=== PATIENT | female | born 1940 | race Caucasian/White ===

== ENCOUNTER 2017-10-19 11:44 | Day surgery (SDC) | payer MEDICARE ==
[2017-10-16 14:13] LABS: BASOPHILS # (AUTO) 0.04 x10^3/uL (0-0.1); BASOPHILS % (AUTO) 0 % (0-1); EOSINOPHILS # (AUTO) 0.18 x10^3/uL (0-0.4); EOSINOPHILS % (AUTO) 2 % (1-7); LYMPHOCYTES # (AUTO) 1.63 x10^3/uL (1-3.4); LYMPHOCYTES % (AUTO) 15 % (22-44); MD NO; MEAN CORPUSCULAR HEMOGLOBIN 30.6 pg (27.0-34.8); MEAN CORPUSCULAR HGB CONC 34.2 g/dL (32.4-35.8); MEAN CORPUSCULAR VOLUME 89.4 fL (80-100); MEAN PLATELET VOLUME 8.1 fL (7.4-10.4); MONOCYTES # (AUTO) 0.75 x10^3/uL (0.2-0.8); MONOCYTES % (AUTO) 7 % (2-9); NEUTROPHILS % (AUTO) 77 % (42-75); PLATELET COUNT 271 x10^3/uL (130-400); RED BLOOD COUNT 4.32 x10^6/uL (3.82-5.3); RED CELL DISTRIBUTION WIDTH 14.1 % (9.6-15.2)
[2017-10-16 14:18] LABS: CULTURE INDICATED? NO; MICROSCOPIC NOT IND
[2017-10-16 14:20] LABS: INTERNATIONAL NORMALIZED RATIO 0.97 (0.93-1.1); PROTHROMBIN TIME 10.1 Seconds (9.6-11.5)
[2017-10-16 14:24] LABS: ALANINE AMINOTRANSFERASE 31 U/L (12-78); ALBUMIN 3.3 g/dL (3.4-5.0); ANION GAP 8 mmol/L (5-15); CALCIUM 8.5 mg/dL (8.5-10.1); CHLORIDE 107 mmol/L (98-107); CREATININE 1.28 mg/dL (0.55-1.02)
[2017-10-16 14:26] LABS: ALKALINE PHOSPHATASE 86 U/L (45-117); BILIRUBIN,TOTAL 0.3 mg/dL (0.2-1.0); TOTAL PROTEIN 7.2 g/dL (6.4-8.2)
[~2017-10-19] VITALS: Ht 154.9 cm; Wt 71.6 kg
[~2017-10-19 11:44] MED LIST: 5-HY100C3 PO; BUPIVACAINE/PF 0.5% ONE; CALC250T PO; CHOL5000 PO; DICL100G19 TP; FISH1CAP PO; FOLI-17 PO; GARL10002 PO; LEVO50TA5 PO; LIOT5TAB3 SL; MAGN100T6 PO; OMEP20TA62 PO; Occuvite PO; Potassium Citrate PO; VITA400C9 PO; [UNRECOGNIZED DRUG - OTHER] PO
[2017-10-19] MEDS ORDERED: LACTATED RINGERS 1,000 ML IV SCH ×2 (12:06→18:00)
[2017-10-19 12:30] VITALS: BP 124/84
[2017-10-19] MEDS ORDERED: ONDANSETRON ODT 8 MG PO ONE (12:30)
[2017-10-19] MEDS ORDERED: GABAPENTIN 300 MG CAPSULE PO ONE (12:30)
[2017-10-19] MEDS ORDERED: LIDOCAINE-MPF 1%, 2ML INFIL ONE (12:30)
[2017-10-19] MEDS ORDERED: FENTANYL PF 100 MCG/2ML ONE (13:08)
[2017-10-19] MEDS ORDERED: MIDAZOLAM 1 MG/ML, 2ML ONE (13:58)
[2017-10-19] MEDS ORDERED: SCOPOLAMINE PATCH, 1.5MG PATCH.TD72 TD ONE (14:00)
[2017-10-19] MEDS ORDERED: ONDANSETRON ODT 8 MG PO PRN (14:30)
[2017-10-19] MEDS ORDERED: HYDROcodone/APAP 7.5-325MG/15ML UDC PO PRN (14:30)
[2017-10-19] MEDS ORDERED: MIDAZOLAM 1 MG/ML, 2ML IV PRN (14:30)
[2017-10-19] MEDS ORDERED: ALBUTEROL/IPRATROPIUM 2.5MG/0.5MG, 3 ML NPPB PRN (14:30)
[2017-10-19] MEDS ORDERED: EPHEDRINE 50 MG/ML, 1ML IM PRN (14:30)
[2017-10-19] MEDS ORDERED: DIPHENHYDRAMINE 50 MG/ML, 1ML IVPush PRN ×2 (14:30→18:00)
[2017-10-19] MEDS ORDERED: FENTANYL PF 100 MCG/2ML IV PRN (14:30)
[2017-10-19] MEDS ORDERED: PROMETHAZINE 25 MG/ML, 1ML IV PRN (14:30)
[2017-10-19] MEDS ORDERED: PROMETHAZINE 25 MG SUPP PR PRN (14:30)
[2017-10-19] MEDS ORDERED: LABETALOL 5MG/ML, 20ML IV PRN (14:30)
[2017-10-19] MEDS ORDERED: CEFAZOLIN 1,000 MG ONE (14:51)
[2017-10-19] MEDS ORDERED: DEXAMETHASONE 4 MG/ML, 1ML ONE (14:51)
[2017-10-19] MEDS ORDERED: PROPOFOL 10 MG/ML, 20ML ONE (14:51)
[2017-10-19] MEDS ORDERED: HYDR-3237 PO (17:40)
[2017-10-19] MEDS ORDERED: ONDA4TAB12 PO (17:41)
[2017-10-19] MEDS ORDERED: ONDANSETRON 2MG/ML, 2ML IVPush PRN (18:00)
== END 2017-10-19 18:06 | disposition home or self-care (01) ==
LOC: OUT 11:44 → 4NOR 17:26 → OUT 18:06
PROVIDERS: ATTEND Surgery
DX: C43.72 Malignant melanoma of left lower limb, including hip (principal); F41.9 Anxiety disorder, unspecified; E03.9 Hypothyroidism, unspecified; K58.9 Irritable bowel syndrome, unspecified; Z98.890 Other specified postprocedural states; Z90.710 Acquired absence of both cervix and uterus; Z88.1 Allergy status to other antibiotic agents; Z88.5 Allergy status to narcotic agent; Z88.8 Allergy status to other drugs, medicaments and biological substances
CPT/HCPCS: 11601; 36415; 80053; 81003; 85025; 85610; 88305; 88307; 93005; J0690; J1100; J2250; J2704; J3010; J3490; J7120; Q0162

== ENCOUNTER 2020-07-09 09:46 | Emergency (ER) | payer MEDICARE ==
[~2020-07-09] VITALS: Ht 154.9 cm; Wt 54.0 kg
[~2020-07-09 09:46] MED LIST changes: -BUPIVACAINE/PF 0.5% ONE; -FOLI-17 PO; +FOLI1TAB32 PO; +HYDR-3237 PO; +LIOT5TAB11 SL; -LIOT5TAB3 SL; +ONDA-89 PO; +VITA-73 PO; -VITA400C9 PO
--- NOTE | 2020-07-09 10:33 | NUR ---
a & o x4, head ct done, states she is having troube keeping her thoughts together, friend at bed side.
--- NOTE | 2020-07-09 10:42 | NUR ---
pt states covid vacanation 04/30.
[2020-07-09 11:05] LABS: BASOPHILS % (AUTO) 1 % (0-1); EOSINOPHILS % (AUTO) 1 % (1-7); LYMPHOCYTES % (AUTO) 20 % (22-44); MEAN CORPUSCULAR HEMOGLOBIN 32.2 pg (27.0-34.8); MEAN CORPUSCULAR HGB CONC 34.3 g/dL (32.4-35.8); MEAN PLATELET VOLUME 7.8 fL (7.4-10.4); MONOCYTES % (AUTO) 6 % (2-9); NEUTROPHILS % (AUTO) 72 % (42-75); PLATELET COUNT 212 x10^3/uL (130-400); RED BLOOD COUNT 4.23 x10^6/uL (3.82-5.3); RED CELL DISTRIBUTION WIDTH 13.2 % (9.6-15.2)
[2020-07-09 11:07] LABS: MD NO
[2020-07-09 11:19] LABS: ALANINE AMINOTRANSFERASE 38 U/L (12-78); ALBUMIN 3.4 g/dL (3.4-5.0); ANION GAP 6 mmol/L (5-15); CALCIUM 9.1 mg/dL (8.5-10.1); CHLORIDE 110 mmol/L (98-107)
[2020-07-09 11:21] LABS: SALICYLATE LEVEL < 1.7 mg/dL (2.8-20.0)
[2020-07-09 11:24] LABS: ALKALINE PHOSPHATASE 74 U/L (45-117); BILIRUBIN,TOTAL 0.7 mg/dL (0.2-1.0); CREATININE 0.89 mg/dL (0.55-1.02); TOTAL PROTEIN 6.4 g/dL (6.4-8.2); TROPONIN I < 0.015 ng/mL (0.000-0.045)
[2020-07-09 11:30] LABS: MICROSCOPIC NOT IND
--- NOTE | 2020-07-09 11:52 | NUR ---
pt down to MRI, safety ckecklist done.
--- NOTE | 2020-07-09 12:19 | NUR ---
back from mri
[2020-07-09 13:19] VITALS: BP 122/62
== END 2020-07-09 13:22 | disposition home or self-care (01) ==
LOC: ED 10:13
DX: R41.82 Altered mental status, unspecified (principal); E03.9 Hypothyroidism, unspecified; R51.9 Headache, unspecified; R00.9 Unspecified abnormalities of heart beat; R94.31 Abnormal electrocardiogram [ECG] [EKG]; M19.90 Unspecified osteoarthritis, unspecified site
CPT/HCPCS: 36415; 70450; 70551; 71045; 80053; 80299; 80320; 80329; 81003; 82140; 84484; 85025; 93005; 99285; G0480